=== PATIENT | female | born 1960 | race Caucasian/White ===

== ENCOUNTER → 2016-05-18 | Outpatient (CLI) | payer OTHER ==
[~2016-05-18] MED LIST: CARDIZEM CD240 MG PO; CARTIA XT240 MG PO; CEFUROXIME AXE250 MG PO; CEPHALEXIN500 MG PO; CIPROFLOXACIN500 MG PO; CLINDAMYCIN HC300 MG PO; DIPHENHYDRAMINE25 M1 PO; DOK100 MG PO; EES400 MG PO; FLUCONAZOLE100 MG PO; GABAPENTIN300 MG PO; GABAPENTIN800 MG PO; GLUCOPHAGE500 MG PO; HUMALOG100 U/ML SC; K-PHOS500 MG PO; KLONOPIN1 M1 PO; KLONOPIN1 MG PO; LEVAQUIN750 M1 PO; MEDROL DOSEPAK4 MG PO; MORPHINE SULFA100 MG PO; MORPHINE SULFAT30 M2 PO; MORPHINE SULFAT60 M3 PO; MS CONTIN100 MG PO; MS CONTIN60 MG PO; MYCAMINE100 MG IV; MYCOLOG CREAM 115 GM T; Mycostatin Powd15 GM PO; NEURONTIN100 MG PO; PERCOCET 325 MG1 TA2 PO; PHENAZOPYRIDIN200 MG PO; POTASSIUM CHLO10 MEQ PO; PREDNISONE10 MG PO; ROBAXIN750 MG PO; VIBRAMYCIN100 MG PO; VICODIN ES 7501 TAB PO; ZANAFLEX4 M1 PO; [UNRECOGNIZED DRUG - OTHER] V
[2016-05-18 09:16] LABS: BASO # 0.1 10*3/uL (0.0-0.1); BASO % 0.7 % (0.0-1.0); EOS # 0.1 10*3/uL (0.0-0.4); HEMATOCRIT 44.5 % (37.0-47.0); HEMOGLOBIN 13.8 g/dl (12.0-16.0); LYMPH # 1.9 10*3/uL (1.3-4.4); LYMPH % 14.7 % (27.0-41.0); MEAN CELL VOLUME 81.8 fl (81.0-99.0); MEAN CORPUSCULAR HGB 25.4 pg (27.0-31.0); MEAN PLATELET VOLUME 9.8 fl (9.6-12.3); MONO # 0.9 10*3/uL (0.1-1.0); MONO % 6.7 % (3.0-9.0); NEUT # 9.7 10*3/uL (2.3-7.9); NEUT % 76.6 % (47.0-73.0); PLATELET COUNT AUTOMATED 406 10*3/uL (130-400); RED BLOOD COUNT 5.44 10*6/uL (4.10-5.10); RED CELL DISTRI WIDTH 14.2 % (0-14.5); WHITE BLOOD COUNT 12.7 10*3/uL (4.8-10.8)
[2016-05-18 10:01] LABS: ALBUMIN 3.3 gm/dl (3.1-4.5); ALKALINE PHOSPHATASE 99 U/L (45-117); BILIRUBIN, TOTAL 0.7 mg/dl (0.2-1.0); BUN 14 mg/dl (7-24); CARBON DIOXIDE 25 mmol/L (21-32); CEA 0.9 ng/mL; CHLORIDE 100 mmol/L (98-107); CHOLESTEROL 147 mg/dL (<200); EST GLOM FILT AFRICAN AMERICAN > 60 ml/min; GLUCOSE 166 mg/dL (65-99); HDL CHOLESTEROL 49 mg/dl (40-60); LDL CHOLESTEROL 80 mg/dL (9-159); POTASSIUM 3.9 mmol/L (3.5-5.1); SGOT/AST 23 IU/L (3-35); SGPT/ALT 36 U/L (12-78); SODIUM 137 mmol/L (136-145); TOTAL PROTEIN 8.3 gm/dL (6.4-8.2); TRIGLYCERIDES 89 mg/dl (<150); VLDL CHOLESTEROL 18 mg/dL (6-40)
== END | disposition home or self-care (01) ==
LOC: LAB 08:53
PROVIDERS: Internal Medicine
DX: E11.42 Type 2 diabetes mellitus with diabetic polyneuropathy (principal); J96.11 Chronic respiratory failure with hypoxia; R91.1 Solitary pulmonary nodule

== ENCOUNTER 2018-05-27 19:13 | Emergency (ER) | payer OTHER ==
[~2018-05-27] VITALS: Ht 165.1 cm; Wt 113.4 kg
--- NOTE | ~2018-05-27 | EKG ---
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
[~2018-05-27 19:13] MED LIST changes: +K-TAB20 MEQ PO; +LISINOPRIL20 MG PO; +LOPRESSOR50 M1 PO; +MAGNESIUM400 MG PO
[2018-05-27 19:44] LABS: BASO # 0.1 10*3/uL (0.0-0.1); BASO % 0.7 % (0.0-1.0); EOS % 0.5 % (1.0-4.0); HEMATOCRIT 48.1 % (37.0-47.0); HEMOGLOBIN 15.3 g/dl (12.0-16.0); LYMPH # 0.8 10*3/uL (1.3-4.4); LYMPH % 9.5 % (27.0-41.0); MEAN CELL VOLUME 80.8 fl (81.0-99.0); MEAN CORPUSCULAR HGB 25.7 pg (27.0-31.0); MEAN CORPUSCULAR HGB CONC 31.8 g/dl (33.0-37.0); MEAN PLATELET VOLUME 9.6 fl (9.6-12.3); MONO # 0.4 10*3/uL (0.1-1.0); MONO % 4.3 % (3.0-9.0); NEUT # 7.5 10*3/uL (2.3-7.9); NEUT % 84.8 % (47.0-73.0); PLATELET COUNT AUTOMATED 266 10*3/uL (130-400); RED BLOOD COUNT 5.95 10*6/uL (4.10-5.10); RED CELL DISTRI WIDTH 14.7 % (0-14.5); WHITE BLOOD COUNT 8.9 10*3/uL (4.8-10.8)
[2018-05-27 20:04] LABS: ALBUMIN 3.6 gm/dl (3.1-4.5); ALKALINE PHOSPHATASE 95 U/L (45-117); BUN 10 mg/dl (7-24); CHLORIDE 105 mmol/L (98-107); CREATININE 0.84 mg/dL (0.55-1.02); POTASSIUM 3.6 mmol/L (3.5-5.1); SGOT/AST 28 IU/L (3-35); SGPT/ALT 45 U/L (12-78); SODIUM 139 mmol/L (136-145); TOTAL PROTEIN 8.3 gm/dL (6.4-8.2)
[2018-05-27 20:08] LABS: TROPONIN I < 0.015 ng/ml (<0.045)
[2018-05-27 22:51] LABS: BILIRUBIN NEGATIVE (NEGATIVE); BLOOD NEGATIVE (NEGATIVE); CLARITY SL CLOUDY (CLEAR); COLOR YELLOW (YELLOW); GLUCOSE 1+ (NEGATIVE); KETONE 1+ (NEGATIVE); LEUKO ESTERASE NEGATIVE (NEGATIVE); NITRITE NEGATIVE (NEGATIVE); PH 5.5 (5.0-9.0); SPECIFIC GRAVITY 1.025 (1.005-1.030); UROBILINOGEN 0.2 E.U./dl (0.2-1.0)
[2018-05-27 23:10] LABS: BACTERIA 1+; EPITHELIAL CELLS 45-50
[2018-05-28 01:56] LABS: URINE AMPHETAMINES < 1000 (1000ng/ml); URINE BARBITURATES < 200 (200ng/ml); URINE BENZODIAZEPINES > 200 (200ng/ml); URINE CANNABINOIDS (THC) < 50 (50ng/ml); URINE COCAINE > 300 (300ng/ml); URINE METHADONE < 300 (300ng/ml); URINE OPIATES > 300 (300ng/ml)
[2018-05-28 01:58] LABS: URINE PHENCYCLIDINE < 25 (25ng/ml)
[2018-05-28 04:19] VITALS: BP 143/80
== END 2018-05-28 05:56 | disposition short-term general hospital (02) ==
LOC: ED 19:13
PROVIDERS: Emergency Medicine
DX: R56.9 Unspecified convulsions (principal); F19.90 Other psychoactive substance use, unspecified, uncomplicated; F41.9 Anxiety disorder, unspecified; R45.1 Restlessness and agitation; R53.1 Weakness; R11.0 Nausea; R10.13 Epigastric pain; R30.9 Painful micturition, unspecified; J44.9 Chronic obstructive pulmonary disease, unspecified; I10 Essential (primary) hypertension; E66.9 Obesity, unspecified; Z79.899 Other long term (current) drug therapy; Z88.0 Allergy status to penicillin; Z88.1 Allergy status to other antibiotic agents; Z87.440 Personal history of urinary (tract) infections